=== PATIENT | female | born 1960 | race Caucasian/White ===

== ENCOUNTER → 2017-05-21 | Outpatient (REF) | payer BC ==
[2017-05-21 21:23] LABS: ESTIMATED AVERAGE GLUCOSE 128 MG/DL (60-110); HEMOGLOBIN A1c 6.1 %
== END ==
LOC: M SFHCLERA 15:43
DX: Z13.1 Encounter for screening for diabetes mellitus (principal)
CPT/HCPCS: 83036

== ENCOUNTER → 2018-07-02 | Outpatient (REF) | payer BC ==
[2018-07-02 11:36] LABS: BLOOD UREA NITROGEN 11 MG/DL (7-18); CALCIUM LEVEL 8.6 MG/DL (8.5-10.1); CARBON DIOXIDE LEVEL 26 MEQ/L (21-32); CHLORIDE LEVEL 110 MEQ/L (98-107); CHOLESTEROL LEVEL 181 MG/DL (<200); CHOLESTEROL RISK RATIO 3.549 (<5); CREATININE FOR GFR 0.55 MG/DL (0.55-1.30); GLOMERULAR FILTRATION RATE > 60.0 (>51); GLUCOSE, FASTING 95 MG/DL (70-100); HDL CHOLESTEROL 51 MG/DL (>40); LDL CHOLESTEROL 110 MG/DL (<100); NON-HDL-C 130 MG/DL; POTASSIUM SERUM 4.4 MEQ/L (3.5-5.1); SODIUM LEVEL 143 MEQ/L (136-145); TRIGLYCERIDES LEVEL 102 MG/DL (<150)
== END ==
LOC: M SFHCLERA 09:23
PROVIDERS: ATTEND Family Medicine
DX: E78.5 Hyperlipidemia, unspecified (principal); R73.03 Prediabetes; E66.3 Overweight

== ENCOUNTER → 2019-05-05 | Outpatient (REF) | payer BC ==
[2019-05-05 17:43] LABS: ALBUMIN 3.8 GM/DL (3.2-5.2); ALT/SGPT 48 U/L (12-78); BILIRUBIN,TOTAL 0.5 MG/DL (0.2-1.0); BLOOD UREA NITROGEN 17 MG/DL (7-18); CALCIUM LEVEL 9.1 MG/DL (8.5-10.1); CARBON DIOXIDE LEVEL 26 MEQ/L (21-32); CHLORIDE LEVEL 110 MEQ/L (98-107); CREATININE FOR GFR 0.57 MG/DL (0.55-1.30); GLOMERULAR FILTRATION RATE > 60.0 (>51); GLUCOSE, FASTING 88 MG/DL (70-100); POTASSIUM SERUM 4.5 MEQ/L (3.5-5.1); SODIUM LEVEL 141 MEQ/L (136-145); TOTAL PROTEIN 6.8 GM/DL (6.4-8.2)
== END ==
LOC: M SFHCLERA 12:15
PROVIDERS: ATTEND Family Medicine
DX: L83 Acanthosis nigricans (principal)

== ENCOUNTER → 2020-01-16 | Outpatient (CLI) | payer BC ==
[2020-01-16 08:16] LABS: APPEARANCE, URINE HAZY (CLEAR); BACTERIA, URINE AUTO NEGATIVE (NEGATIVE); BILIRUBIN, URINE AUTO NEGATIVE (NEGATIVE); BLOOD, URINE BLOOD NEGATIVE (NEGATIVE); COLOR, URINE YELLOW (YELLOW); GLUCOSE, URINE (UA) AUTO NEGATIVE (NEGATIVE); KETONE, URINE AUTO NEGATIVE (NEGATIVE); LEUKOCYTE ESTERASE, URINE AUTO 2+ (NEGATIVE); MUCUS, URINE SMALL (NEGATIVE); NITRITE, URINE AUTO NEGATIVE (NEGATIVE); PROTEIN, URINE AUTO NEGATIVE (NEGATIVE); RBC, URINE AUTO 1 /HPF (0-3); SQUAMOUS EPITHELIAL CELL UR AU 11 /HPF (0-6); TRANSITIONAL EPITHELIAL AUTO 1 /HPF; UROBILINOGEN, URINE AUTO 0.2 mg/dL (0.0-2.0); WBC, URINE AUTO 5 /HPF (0-3)
[2020-01-16 08:52] LABS: ALBUMIN 3.8 GM/DL (3.2-5.2); ALT/SGPT 43 U/L (12-78); BILIRUBIN,TOTAL 0.5 MG/DL (0.2-1.0); BLOOD UREA NITROGEN 14 MG/DL (7-18); CALCIUM LEVEL 8.7 MG/DL (8.5-10.1); CARBON DIOXIDE LEVEL 25 MEQ/L (21-32); CHLORIDE LEVEL 110 MEQ/L (98-107); CHOLESTEROL LEVEL 185 MG/DL (<200); CHOLESTEROL RISK RATIO 4.204 (<5); GLOMERULAR FILTRATION RATE > 60.0 (>51); GLUCOSE, FASTING 111 MG/DL (70-100); HDL CHOLESTEROL 44 MG/DL (>40); LDL CHOLESTEROL 118 MG/DL (<100); NON-HDL-C 141 MG/DL; POTASSIUM SERUM 4.2 MEQ/L (3.5-5.1); SODIUM LEVEL 141 MEQ/L (136-145); TOTAL PROTEIN 6.6 GM/DL (6.4-8.2); TRIGLYCERIDES LEVEL 117 MG/DL (<150)
== END ==
LOC: M LAB 06:34
PROVIDERS: ATTEND Family Medicine
DX: R03.0 Elevated blood-pressure reading, without diagnosis of hypertension (principal)

== ENCOUNTER → 2020-01-23 | Outpatient (CLI) | payer BC ==
--- NOTE | 2020-01-25 13:29 | ECHO ---
DATE OF PROCEDURE: 01/23/2020 Age: 59 Gender: Female Height: 167 cm Weight: 86 kg REFERRING PHYSICIAN: Patience Caicedo MD. INDICATION: Left ventricular hypertrophy. MEASUREMENTS: IVS 1.0 cm LV 4.8 cm LVPW 0.9 cm LA 3.3 cm Aorta 2.8 cm RV 3.1 IVC 1.6 cm Mitral E wave velocity 96, A wave 83 E prime septal 12.2, E prime lateral 10.6 Left atrial volume index 28 FINDINGS: This study is of acceptable technical quality. Underlying sinus rhythm. Normal LV size with normal LV systolic function. No evidence for left ventricular hypertrophy. Right ventricle is normal size and systolic function as well. Both atria appear normal. All four cardiac valves were reasonably well seen and appear normal. No pericardial effusion is noted. Inferior vena cava is of normal size and appropriately collapses with inspiration indicative of normal central venous pressure. The aortic root and aortic arch appear normal. Abdominal aorta was not well seen. Doppler interrogation reveals competent aortic valve. There is trace mitral insufficiency. Tricuspid and pulmonic valves are functionally competent. Mitral inflow pattern and tissue Doppler imaging of the mitral annulus reveal normal diastolic function. CONCLUSIONS: 1. Study is of good technical quality, underlying sinus rhythm. 2. Normal left ventricular (LV) size and systolic function, normal diastolic function. 3. No significant valvular disease. 4. Normal central venous pressure. 5. Unable to estimate pulmonary artery pressure, but no signs to suggest pulmonary hypertension. 6. No evidence for left ventricular hypertrophy. MTDD
== END ==
LOC: M CARPUL 08:24
PROVIDERS: ATTEND Family Medicine
DX: I51.7 Cardiomegaly (principal)

== ENCOUNTER → 2020-11-09 | Outpatient (CLI) | payer BC ==
[2020-11-09 08:37] LABS: BASO # 0.1 10^3/uL (0.0-0.2); BASO % 1.6 % (0.0-1.0); EOS # 0.4 10^3/uL (0.0-0.5); EOS % 6.4 % (0.0-3.0); HEMATOCRIT 41.3 % (36.0-47.0); HEMOGLOBIN 13.6 g/dl (12.0-15.5); LYMPH # 1.6 10^3/uL (1.5-5.0); LYMPH % 23.8 % (24.0-44.0); MEAN CORPUSCULAR HEMOGLOBIN 29.8 pg (27.0-33.0); MEAN CORPUSCULAR HGB CONC 32.9 g/dl (32.0-36.5); MEAN CORPUSCULAR VOLUME 90.6 fl (80.0-96.0); MONO # 0.5 10^3/uL (0.0-0.8); MONO % 7.4 % (2.0-8.0); NEUTROPHILS # 4.1 10^3/uL (1.5-8.5); NEUTROPHILS % 60.5 % (36.0-66.0); PLATELET COUNT, AUTOMATED 249 10^3/uL (150-450); RED BLOOD COUNT 4.56 10^6/uL (4.00-5.40); WHITE BLOOD COUNT 6.7 10^3/uL (4.0-10.0)
[2020-11-09 09:05] LABS: ALBUMIN 3.6 GM/DL (3.2-5.2); ALT/SGPT 39 U/L (12-78); BILIRUBIN,TOTAL 0.5 MG/DL (0.2-1.0); BLOOD UREA NITROGEN 13 MG/DL (7-18); CALCIUM LEVEL 8.9 MG/DL (8.8-10.2); CARBON DIOXIDE LEVEL 25 MEQ/L (21-32); CHLORIDE LEVEL 112 MEQ/L (98-107); CHOLESTEROL LEVEL 198 MG/DL (<200); CHOLESTEROL RISK RATIO 3.735 (<5); CREATININE FOR GFR 0.58 MG/DL (0.55-1.30); GLOMERULAR FILTRATION RATE > 60.0 (>45); GLUCOSE, FASTING 98 MG/DL (70-100); HDL CHOLESTEROL 53 MG/DL (>40); LDL CHOLESTEROL 123 MG/DL (<100); NON-HDL-C 145 MG/DL; POTASSIUM SERUM 4.5 MEQ/L (3.5-5.1); SODIUM LEVEL 140 MEQ/L (136-145); TOTAL PROTEIN 6.9 GM/DL (6.4-8.2); TRIGLYCERIDES LEVEL 110 MG/DL (<150)
[2020-11-09 12:01] LABS: HEMOGLOBIN A1c 5.9 %
== END ==
LOC: M LAB 07:34
PROVIDERS: ATTEND Student in an Organized Health Care Education/Training Program
DX: Z00.00 Encounter for general adult medical examination without abnormal findings (principal); R73.01 Impaired fasting glucose; R03.0 Elevated blood-pressure reading, without diagnosis of hypertension

== ENCOUNTER → 2021-04-08 | Outpatient (REF) | payer BC ==
[2021-04-09 11:50] LABS: APPEARANCE, URINE CLEAR (CLEAR); BACTERIA, URINE AUTO NEGATIVE (NEGATIVE); BILIRUBIN, URINE AUTO NEGATIVE (NEGATIVE); BLOOD, URINE BLOOD 1+ (NEGATIVE); GLUCOSE, URINE (UA) AUTO NEGATIVE (NEGATIVE); KETONE, URINE AUTO NEGATIVE (NEGATIVE); LEUKOCYTE ESTERASE, URINE AUTO 1+ (NEGATIVE); NITRITE, URINE AUTO NEGATIVE (NEGATIVE); PROTEIN, URINE AUTO NEGATIVE (NEGATIVE); RBC, URINE AUTO 1 /HPF (0-3); SPECIFIC GRAVITY URINE AUTO 1.004 (1.002-1.035); SQUAMOUS EPITHELIAL CELL UR AU 4 /HPF (0-6); TRANSITIONAL EPITHELIAL AUTO <1 /HPF; UROBILINOGEN, URINE AUTO 0.2 mg/dL (0.0-2.0); WBC, URINE AUTO 7 /HPF (0-3)
[2021-04-09 11:53] LABS: COLOR, URINE YELLOW (YELLOW)
== END ==
LOC: M SFHCLERA 11:14
PROVIDERS: ATTEND Family Medicine
DX: R30.0 Dysuria (principal); R35.0 Frequency of micturition; R39.15 Urgency of urination

== ENCOUNTER → 2021-04-09 | Outpatient (CLI) | payer BC ==
[2021-04-09 07:52] LABS: BLOOD UREA NITROGEN 11 MG/DL (7-18); CALCIUM LEVEL 8.5 MG/DL (8.8-10.2); CARBON DIOXIDE LEVEL 23 MEQ/L (21-32); CHLORIDE LEVEL 110 MEQ/L (98-107); CREATININE FOR GFR 0.72 MG/DL (0.55-1.30); GLOMERULAR FILTRATION RATE > 60.0 (>45); GLUCOSE, FASTING 135 MG/DL (70-100); SODIUM LEVEL 141 MEQ/L (136-145)
== END ==
LOC: M LAB 06:46
PROVIDERS: ATTEND Family Medicine
DX: R03.0 Elevated blood-pressure reading, without diagnosis of hypertension (principal)

== ENCOUNTER → 2021-04-23 | Outpatient (REF) | payer BC | LOC: M SFHCLERA 11:16 | PROVIDERS: ATTEND Family Medicine | DX: R30.0 Dysuria (principal) ==

== ENCOUNTER → 2021-05-03 | Outpatient (CLI) | payer BC | LOC: M RAD 09:57 | PROVIDERS: ATTEND Family Medicine | DX: N32.89 Other specified disorders of bladder (principal) ==

== ENCOUNTER → 2021-05-08 | Outpatient (REF) | payer BC ==
[2021-05-08 18:14] LABS: APPEARANCE, URINE HAZY (CLEAR); BACTERIA, URINE AUTO 1+ (NEGATIVE); BILIRUBIN, URINE AUTO NEGATIVE (NEGATIVE); BLOOD, URINE BLOOD NEGATIVE (NEGATIVE); COLOR, URINE YELLOW (YELLOW); GLUCOSE, URINE (UA) AUTO NEGATIVE (NEGATIVE); KETONE, URINE AUTO NEGATIVE (NEGATIVE); LEUKOCYTE ESTERASE, URINE AUTO TRACE (NEGATIVE); MUCUS, URINE SMALL (NEGATIVE); NITRITE, URINE AUTO NEGATIVE (NEGATIVE); PROTEIN, URINE AUTO NEGATIVE (NEGATIVE); RBC, URINE AUTO 0 /HPF (0-3); SPECIFIC GRAVITY URINE AUTO 1.009 (1.002-1.035); SQUAMOUS EPITHELIAL CELL UR AU 5 /HPF (0-6); UROBILINOGEN, URINE AUTO 0.2 mg/dL (0.0-2.0); WBC, URINE AUTO 3 /HPF (0-3)
== END ==
LOC: M SMT 17:03
PROVIDERS: ATTEND Physician Assistant
DX: R30.1 Vesical tenesmus (principal)

== ENCOUNTER → 2021-08-01 | Outpatient (REF) | payer BC | LOC: M LAB REF 12:09 | PROVIDERS: ATTEND Physician Assistant | DX: R50.9 Fever, unspecified (principal) ==

== ENCOUNTER → 2021-12-31 | Outpatient (CLI) | payer BC ==
[2021-12-31 07:27] LABS: BASO # 0.1 10^3/uL (0.0-0.2); BASO % 1.2 % (0.0-1.0); EOS # 0.3 10^3/uL (0.0-0.5); EOS % 3.6 % (0.0-3.0); HEMOGLOBIN 12.4 g/dl (12.0-15.5); LYMPH # 2.1 10^3/uL (1.5-5.0); LYMPH % 27.5 % (24.0-44.0); MEAN CORPUSCULAR HEMOGLOBIN 27.9 pg (27.0-33.0); MEAN CORPUSCULAR HGB CONC 31.8 g/dl (32.0-36.5); MEAN CORPUSCULAR VOLUME 87.8 fl (80.0-96.0); MONO # 0.6 10^3/uL (0.0-0.8); MONO % 8.3 % (2.0-8.0); NEUTROPHILS # 4.6 10^3/uL (1.5-8.5); NEUTROPHILS % 59.3 % (36.0-66.0); PLATELET COUNT, AUTOMATED 290 10^3/uL (150-450); RED BLOOD COUNT 4.44 10^6/uL (4.00-5.40); WHITE BLOOD COUNT 7.7 10^3/uL (4.0-10.0)
== END ==
LOC: M LAB 06:46
PROVIDERS: ATTEND Nurse Practitioner Family
DX: I78.0 Hereditary hemorrhagic telangiectasia (principal)

== ENCOUNTER → 2022-02-04 | Outpatient (CLI) | payer BC ==
[~2022-02-04] MED LIST: ISOVUE-370 76% 100ML VIAL As Ordered ONE
== END ==
LOC: M RAD 12:36
PROVIDERS: ATTEND Internal Medicine Hematology
DX: I78.0 Hereditary hemorrhagic telangiectasia (principal)

== ENCOUNTER → 2023-03-23 | Outpatient (CLI) | payer BC ==
[2023-03-23 08:48] LABS: BASO # 0.1 10^3/uL (0.0-0.2); EOS # 0.3 10^3/uL (0.0-0.5); EOS % 3.9 % (0.0-3.0); HEMOGLOBIN 14.1 g/dl (12.0-15.5); LYMPH # 1.8 10^3/uL (1.5-5.0); LYMPH % 23.3 % (24.0-44.0); MEAN CORPUSCULAR HEMOGLOBIN 31.7 pg (27.0-33.0); MEAN CORPUSCULAR HGB CONC 34.4 g/dl (32.0-36.5); MEAN CORPUSCULAR VOLUME 92.1 fl (80.0-96.0); MONO # 0.5 10^3/uL (0.0-0.8); MONO % 6.7 % (2.0-8.0); NEUTROPHILS # 5.1 10^3/uL (1.5-8.5); NEUTROPHILS % 64.7 % (36.0-66.0); PLATELET COUNT, AUTOMATED 258 10^3/uL (150-450); RED BLOOD COUNT 4.45 10^6/uL (4.00-5.40); WHITE BLOOD COUNT 7.9 10^3/uL (4.0-10.0)
[2023-03-23 09:19] LABS: ALBUMIN 3.5 G/DL (3.2-5.2); ALKALINE PHOSPHATASE 75 U/L (46-116); ALT/SGPT 28 U/L (7.0-40); AST/SGOT 19 U/L (<34); BILIRUBIN,TOTAL 0.7 MG/DL (0.3-1.2); BLOOD UREA NITROGEN 15 MG/DL (9-23); CALCIUM LEVEL 8.7 MG/DL (8.3-10.6); CARBON DIOXIDE LEVEL 26 MMOL/L (20-31); CHLORIDE LEVEL 108 MMOL/L (98-107); CHOLESTEROL LEVEL 179 MG/DL (<200); CHOLESTEROL RISK RATIO 3.61 (<5); GLOMERULAR FILTRATION RATE > 60.0 (>45); GLUCOSE, FASTING 111 MG/DL (74-106); HDL CHOLESTEROL 49.5 MG/DL (>40); LDL CHOLESTEROL 101.5 MG/DL (<100); NON-HDL-C 129.5 MG/DL; POTASSIUM SERUM 3.7 MMOL/L (3.5-5.1); SODIUM LEVEL 142 MMOL/L (136-145); TOTAL PROTEIN 6.7 G/DL (5.7-8.2); TRIGLYCERIDES LEVEL 140 MG/DL (<150)
[2023-03-23 09:22] LABS: THYROID STIMULATING HORMONE 3.591 uIU/ML (0.55-4.78)
[2023-03-23 09:23] LABS: TOTAL 25(OH) VITAMIN D 25.4 NG/ML (20.0-100.0)
[2023-03-23 09:35] LABS: HEMOGLOBIN A1c 5.8 % (4.0-6.0)
== END ==
LOC: M LAB 07:02
PROVIDERS: ATTEND Physician Assistant
DX: I10 Essential (primary) hypertension (principal)

== ENCOUNTER → 2023-07-13 | Outpatient (CLI) | payer BC ==
[2023-07-13 12:44] LABS: HEMOGLOBIN A1c 5.8 % (4.0-6.0)
[2023-07-13 12:47] LABS: URIC ACID 7.2 MG/DL (3.1-7.8)
[2023-07-13 12:51] LABS: ALBUMIN 3.6 G/DL (3.2-5.2); ALKALINE PHOSPHATASE 74 U/L (46-116); ALT/SGPT 30 U/L (7.0-40); AST/SGOT 22 U/L (<34); BILIRUBIN,TOTAL 0.6 MG/DL (0.3-1.2); BLOOD UREA NITROGEN 14 MG/DL (9-23); CALCIUM LEVEL 8.9 MG/DL (8.3-10.6); CARBON DIOXIDE LEVEL 27 MMOL/L (20-31); CHLORIDE LEVEL 105 MMOL/L (98-107); CREATININE FOR GFR 0.63 MG/DL (0.55-1.30); GLOMERULAR FILTRATION RATE > 60.0 (>45); GLUCOSE, FASTING 83 MG/DL (74-106); MAGNESIUM LEVEL 1.8 MG/DL (1.8-2.4); POTASSIUM SERUM 3.3 MMOL/L (3.5-5.1); SODIUM LEVEL 140 MMOL/L (136-145); TOTAL PROTEIN 6.4 G/DL (5.7-8.2)
[2023-07-13 12:52] LABS: FREE T4 0.86 NG/DL (0.89-1.76); RHEUMATOID FACTOR QUANT 6.9 IU/ML (<14)
[2023-07-13 12:53] LABS: FOLATE 12.5 NG/ML (>5.4); TOTAL 25(OH) VITAMIN D 32.4 NG/ML (20.0-100.0)
[2023-07-13 12:54] LABS: VITAMIN B12 LEVEL > 2000 PG/ML (211-911)
== END ==
LOC: M WUC 08:37
PROVIDERS: ATTEND Physician Assistant
DX: G62.9 Polyneuropathy, unspecified (principal); M25.50 Pain in unspecified joint

== ENCOUNTER → 2023-07-17 | Outpatient (CLI) | payer BC | LOC: M WHC 07:58 | PROVIDERS: ATTEND Physician Assistant | DX: R92.323 Mammographic fibroglandular density, bilateral breasts (principal); Z12.31 Encounter for screening mammogram for malignant neoplasm of breast; Z13.820 Encounter for screening for osteoporosis ==

== ENCOUNTER → 2023-07-21 | Outpatient (CLI) | payer BC ==
[2023-07-21 14:26] LABS: PERCENT SATURATION 19.4 % (13.2-45.0); RHEUMATOID FACTOR QUANT 4.5 IU/ML (<14)
[2023-07-21 14:27] LABS: FERRITIN 43.5 NG/ML (7.3-270.7)
[2023-07-25 16:08] LABS: ALBUMIN SPEP 3.9 g/dL (2.9-4.4); ALPHA-1-GLOBULINS SO 0.2 g/dL (0.0-0.4); ALPHA-2-GLOBULINS SO 0.8 g/dL (0.4-1.0); ANTINUCLEAR ANTIBODIES DIRECT Negative (Negative); BETA-GLOBULIN SO 1.1 g/dL (0.7-1.3); GAMMA GLOBULINS SO 0.9 g/dL (0.4-1.8); IMMUNOTYPING SERUM IGA SO 150 mg/dL (87-352); IMMUNOTYPING SERUM IGM SO 88 mg/dL (26-217); SJOGREN'S ANTI SS-A <0.2 AI (0.0-0.9); SJOGREN'S ANTI SS-B <0.2 AI (0.0-0.9); T P ELECTROPHORESIS SO 6.9 g/dL (6.0-8.5); VITAMIN B1 LEVEL WHOLE BLOODX 118.8 nmol/L (66.5-200.0); VITAMIN E(GAMMA TOCOPHEROL) 2.4 mg/L (0.5-4.9)
== END ==
LOC: M WUC 11:11
PROVIDERS: ATTEND Psychiatry & Neurology Neurology
DX: D50.9 Iron deficiency anemia, unspecified (principal); G62.9 Polyneuropathy, unspecified; E53.8 Deficiency of other specified B group vitamins; M35.00 Sjogren syndrome, unspecified

== ENCOUNTER → 2023-09-01 | Outpatient (REF) | payer BC ==
[2023-09-01 19:10] LABS: ALBUMIN 3.8 G/DL (3.2-5.2); ALKALINE PHOSPHATASE 79 U/L (46-116); ALT/SGPT 29 U/L (7.0-40); AST/SGOT 24 U/L (<34); BILIRUBIN,TOTAL 0.7 MG/DL (0.3-1.2); BLOOD UREA NITROGEN 12 MG/DL (9-23); CALCIUM LEVEL 9.2 MG/DL (8.3-10.6); CARBON DIOXIDE LEVEL 26 MMOL/L (20-31); CHLORIDE LEVEL 105 MMOL/L (98-107); CREATININE FOR GFR 0.59 MG/DL (0.55-1.30); GLOMERULAR FILTRATION RATE > 60.0 (>45); GLUCOSE, FASTING 88 MG/DL (74-106); POTASSIUM SERUM 3.5 MMOL/L (3.5-5.1); SODIUM LEVEL 139 MMOL/L (136-145); TOTAL PROTEIN 6.6 G/DL (5.7-8.2)
[2023-09-01 19:11] LABS: THYROID STIMULATING HORMONE 3.431 uIU/ML (0.55-4.78)
[2023-09-01 19:12] LABS: FREE T4 1.02 NG/DL (0.89-1.76)
== END ==
LOC: M SFHCLERA 08:43
PROVIDERS: ATTEND Physician Assistant
DX: E87.6 Hypokalemia (principal)

== ENCOUNTER → 2024-02-22 | Outpatient (CLI) | payer BC ==
[2024-02-22 17:25] LABS: BASO # 0.1 10^3/uL (0.0-0.2); BASO % 1.2 % (0.0-1.0); EOS # 0.1 10^3/uL (0.0-0.5); EOS % 1.9 % (0.0-3.0); HEMATOCRIT 41.7 % (36.0-47.0); HEMOGLOBIN 13.7 g/dl (12.0-15.5); LYMPH # 1.9 10^3/uL (1.5-5.0); MEAN CORPUSCULAR HEMOGLOBIN 29.9 pg (27.0-33.0); MEAN CORPUSCULAR HGB CONC 32.9 g/dl (32.0-36.5); MONO # 0.4 10^3/uL (0.0-0.8); MONO % 6.4 % (2.0-8.0); NEUTROPHILS # 3.9 10^3/uL (1.5-8.5); NEUTROPHILS % 61.2 % (36.0-66.0); PLATELET COUNT, AUTOMATED 251 10^3/uL (150-450); RED BLOOD COUNT 4.58 10^6/uL (4.00-5.40); WHITE BLOOD COUNT 6.4 10^3/uL (4.0-10.0)
[2024-02-22 17:46] LABS: ALBUMIN 3.9 G/DL (3.2-5.2); ALKALINE PHOSPHATASE 83 U/L (35-104); ALT/SGPT 28 U/L (7.0-40); AST/SGOT 24 U/L (<34); BILIRUBIN,TOTAL 0.4 MG/DL (0.3-1.2); BLOOD UREA NITROGEN 13 MG/DL (9-23); CALCIUM LEVEL 9.5 MG/DL (8.3-10.6); CARBON DIOXIDE LEVEL 28 MMOL/L (20-31); CHLORIDE LEVEL 105 MMOL/L (98-107); CHOLESTEROL LEVEL 222 MG/DL (<200); CHOLESTEROL RISK RATIO 4.33 (<5); CREATININE FOR GFR 0.59 MG/DL (0.55-1.30); GLOMERULAR FILTRATION RATE > 60.0 (>45); GLUCOSE, FASTING 129 MG/DL (74-106); HDL CHOLESTEROL 51.2 MG/DL (>40); LDL CHOLESTEROL 137.2 MG/DL (<100); NON-HDL-C 170.8 MG/DL; POTASSIUM SERUM 3.6 MMOL/L (3.5-5.1); SODIUM LEVEL 143 MMOL/L (136-145); TRIGLYCERIDES LEVEL 168 MG/DL (<150)
[2024-02-22 17:48] LABS: THYROID STIMULATING HORMONE 2.202 uIU/ML (0.55-4.78); TOTAL 25(OH) VITAMIN D 29.5 NG/ML (20.0-100.0)
[2024-02-22 17:50] LABS: HEMOGLOBIN A1c 5.6 % (4.0-6.0)
== END ==
LOC: M WUC 11:12
DX: Z23 Encounter for immunization (principal); I78.0 Hereditary hemorrhagic telangiectasia; R73.03 Prediabetes; G62.9 Polyneuropathy, unspecified

== ENCOUNTER → 2024-08-31 | Outpatient (CLI) | payer BC | LOC: M WHC 10:16 | DX: R92.8 Other abnormal and inconclusive findings on diagnostic imaging of breast (principal) ==

== ENCOUNTER → 2025-01-23 | Outpatient (CLI) | payer BC ==
[2025-01-23 13:58] LABS: BASO # 0.1 10^3/uL (0.0-0.2); BASO % 1.3 % (0.0-1.0); EOS # 0.4 10^3/uL (0.0-0.5); EOS % 6.2 % (0.0-3.0); LYMPH # 1.5 10^3/uL (1.5-5.0); LYMPH % 23.7 % (24.0-44.0); MONO # 0.6 10^3/uL (0.0-0.8); MONO % 9.2 % (2.0-8.0); NEUTROPHILS # 3.8 10^3/uL (1.5-8.5); NEUTROPHILS % 59.3 % (36.0-66.0); PLATELET COUNT, AUTOMATED 278 10^3/uL (150-450)
[2025-01-23 14:10] LABS: ESTIMATED AVERAGE GLUCOSE 120.0 MG/DL (60-110)
[2025-01-23 14:33] LABS: ALT/SGPT 21 U/L (7.0-40); AST/SGOT 24 U/L (<34); CALCIUM LEVEL 8.8 MG/DL (8.3-10.6); CARBON DIOXIDE LEVEL 28 MMOL/L (20-31); CHLORIDE LEVEL 104 MMOL/L (98-107); CHOLESTEROL LEVEL 151 MG/DL (<200); CHOLESTEROL RISK RATIO 3.13 (<5); CREATININE FOR GFR 0.57 MG/DL (0.55-1.30); GLOMERULAR FILTRATION RATE > 90.0 (>45); LDL CHOLESTEROL 78.4 MG/DL (<100); NON-HDL-C 102.8 MG/DL; POTASSIUM SERUM 4.0 MMOL/L (3.5-5.1); SODIUM LEVEL 143 MMOL/L (136-145); TOTAL 25(OH) VITAMIN D 44.5 NG/ML (20.0-100.0); TRIGLYCERIDES LEVEL 122 MG/DL (<150)
== END ==
LOC: M WUC 10:26
DX: Z00.00 Encounter for general adult medical examination without abnormal findings (principal)